=== PATIENT | female | born 1985 | race Caucasian/White ===

== ENCOUNTER → 2017-10-31 17:03 | Outpatient (CLI) | payer OTHER, SELFPAY ==
[2017-11-15 10:56] LABS: HPV APTIMA, High Risk Negative (Negative)
== END ==
PROVIDERS: Visit Provider Nurse Practitioner Women's Health
DX: Z12.4 Encounter for screening for malignant neoplasm of cervix (principal)
CPT/HCPCS: 88175; G0145

== ENCOUNTER → 2018-03-15 18:22 | Outpatient (CLI) | payer OTHER, SELFPAY ==
[2018-03-15 21:46] LABS: Chlamydia Trachomatis by PCR Negative (Negative); Neisserai gonorrhoeae by PCR Negative (Negative); Probe Check PASS; Sample Adequacy Control PASS; Specimen Processing Control PASS
== END ==
PROVIDERS: Family Provider Family Medicine; PCP Family Medicine; Referring Provider Obstetrics & Gynecology; Visit Provider Obstetrics & Gynecology
DX: Z34.90 Encounter for supervision of normal pregnancy, unspecified, unspecified trimester (principal)
CPT/HCPCS: 36415; 82950; 85025; 86592; 86703; 86762; 86850; 86900; 87077; 87086; 87088; 87186; 87340; 87491; 87591

== ENCOUNTER → 2018-04-12 11:42 | Outpatient (CLI) | payer OTHER, SELFPAY ==
[2018-03-15 17:34] LABS: Absolute Lymphocyte Count 1.92 X10^3/ul (0.83-4.51); Absolute Neutrophil Count 4.4 X10^3/uL (2.0-7.7); Basophil# 0.03 X10^3/uL; Basophil% 0.4 % (0-1); Eosinophils% 2.9 % (0-5); Hematocrit 32.7 % (37-47); Hemoglobin 10.3 g/dl (12.0-15.0); Lymphocyte # 1.92 X10^3/ul (4.0); Lymphocyte % 27.4 % (19-41); Mean Corp Hgb Conc 31.5 g/gl (32-36); Mean Corpuscular Hgb 23.7 pg (27.0-32.0); Mean Corpuscular Volume 75.3 fL (81-99); Mean Platelet Vol. 9.9 fl (6.2-12.0); Monocyte# 0.46 X10^3/uL; Monocyte% 6.6 % (0-10); Neutrophil # 4.38 X10^3/uL (2.7-7.7); Neutrophil % 62.6 % (47-70); Platelet Count 326 K/mm3 (150-450); RBC Distribution Width CV 14.4 % (11.6-14.6); RBC Distribution Width SD 40.5 fl (35.1-43.9); Red Blood Count 4.34 M/mm3 (4.2-5.4)
[2018-03-15 17:38] LABS: POSITIVE COUNT NO; POSITIVE DIFFERENTIAL NO; POSITIVE MORPHOLOGY NO
[2018-03-15 17:46] LABS: Glucose Challenge Gest 1H 50g 76 mg/dL (70-140)
[2018-03-15 18:47] LABS: HIV - WCH Non-Reactive (Nonreactive); Rubella IgG 208.6 IU/mL
[2018-03-21 10:29] LABS: HEPATITIS B SURFACE AG Negative (Negative)
[2018-03-22 05:26] LABS: Rapid Plasmin Reagin (RPR) NONREACTIVE (NONREACTIVE)
== END ==
PROVIDERS: Family Provider Family Medicine; PCP Family Medicine; Referring Provider Obstetrics & Gynecology; Visit Provider Obstetrics & Gynecology
DX: Z34.90 Encounter for supervision of normal pregnancy, unspecified, unspecified trimester (principal)
CPT/HCPCS: 36415; 82950; 85025; 86592; 86703; 86762; 86850; 86900; 87340

== ENCOUNTER → 2018-05-10 09:47 | Outpatient (CLI) | payer OTHER, SELFPAY ==
[2018-05-10 09:05] VITALS: BMI 33.0
== END ==
PROVIDERS: Family Provider Family Medicine; PCP Family Medicine; Referring Provider Obstetrics & Gynecology; Visit Provider Obstetrics & Gynecology
DX: Z36.9 Encounter for antenatal screening, unspecified (principal); Z82.49 Family history of ischemic heart disease and other diseases of the circulatory system
CPT/HCPCS: 36415; 81241

== ENCOUNTER → 2018-08-02 09:37 | Outpatient (CLI) | payer OTHER, SELFPAY ==
[2018-08-02 09:23] VITALS: BMI 33.0
[2018-08-02 10:36] LABS: Absolute Lymphocyte Count 1.59 X10^3/ul (0.83-4.51); Basophil# 0.01 X10^3/uL; Basophil% 0.1 % (0-1); Eosinophil# 0.15 X10^3/uL; Eosinophils% 2.1 % (0-5); Hematocrit 33.9 % (37-47); Hemoglobin 11.1 g/dl (12.0-15.0); Lymphocyte # 1.59 X10^3/ul (4.0); Mean Corp Hgb Conc 32.7 g/gl (32-36); Mean Corpuscular Hgb 27.8 pg (27.0-32.0); Mean Corpuscular Volume 84.8 fL (81-99); Monocyte% 6.9 % (0-10); Neutrophil # 4.95 X10^3/uL (2.7-7.7); Neutrophil % 68.5 % (47-70); Platelet Count 260 K/mm3 (150-450); RBC Distribution Width CV 14.8 % (11.6-14.6); RBC Distribution Width SD 44.7 fl (35.1-43.9); White Blood Count 7.2 K/mm3 (4.4-11.0)
[2018-08-02 10:38] LABS: POSITIVE COUNT NO; POSITIVE DIFFERENTIAL NO; POSITIVE MORPHOLOGY NO
[2018-08-02 11:00] LABS: Glucose Challenge Gest 1H 50g 73 mg/dL (70-140)
== END ==
PROVIDERS: Family Provider Family Medicine; PCP Family Medicine; Referring Provider Obstetrics & Gynecology; Visit Provider Obstetrics & Gynecology
DX: Z34.00 Encounter for supervision of normal first pregnancy, unspecified trimester (principal)
CPT/HCPCS: 36415; 82950; 85025; 86850; 86900

== ENCOUNTER → 2018-10-11 07:54 | Outpatient (CLI) | payer OTHER, SELFPAY ==
[2018-10-07 09:28] VITALS: BMI 37.8
--- NOTE | 2018-10-11 07:56 | US_ITS ---
STUDY: SECOND AND THIRD TRIMESTER OBSTETRICAL ULTRASOUND - LIMITED REASON FOR EXAM: Female, 33 years old. growth assessment. LMP: 01/15/2018. GA (LMP) 38 week 3 day, with JV of 10/22/2018. PRIOR ULTRASOUND: None. TECHNIQUE: Transabdominal ultrasound evaluation was performed. FINDINGS: Single live intrauterine gestation, cephalic presentation, cardiac rate 144 bpm. Amniotic fluid index 10.9 cm, maximum vertical pocket 3.2 cm. Placenta grade 2, posterior fundal, not low-lying. Cervical length 3.2 cm, closed. The maternal adnexa are visualized with no acute process. BIOMETRY: Measurement in a centimeter. BPD: 9.49: 38 weeks, 5 days HC: 34.8 to: 40 weeks, 3 days AC: 35.26: 39 weeks, 2 days FL: 7.48: 38 weeks, 2 days Cephalic index 83%. Femur length/abdominal circumference 21%. Femur length/biparietal diameter 79%. Head circumference/abdominal circumference 0.99. age by current US: 39 weeks, 2 days. JV by current US: 10/16/2018. Estimated weight: 3673 grams, +/- 536 grams, 80 percentile. Limited anatomic images were obtained for assessment of dates, viability and positioning only. In the limited survey no gross anatomic abnormality was observed. US/OB Limited With Biometrics IMPRESSION: Single live intrauterine gestation. No acute or maternal abnormality is evident. Measurements are concordant with expected dates within 6 days. Biometrics as noted above. Electronically Signed: John Ashford MD at 17:37 EDT Tel , Service support ,
== END ==
PROVIDERS: Family Provider Family Medicine; PCP Family Medicine; Referring Provider Obstetrics & Gynecology; Visit Provider Obstetrics & Gynecology
DX: O26.849 Uterine size-date discrepancy, unspecified trimester (principal)
CPT/HCPCS: 76816

== ENCOUNTER 2018-10-22 09:57 | Inpatient (IN) | payer OTHER, SELFPAY ==
[2018-08-30 09:08] VITALS: BMI 33.0
[2018-10-22 09:15] VITALS: BMI 37.8
[2018-10-22 10:10] VITALS: BMI 38.2
[2018-10-22] MEDS: 0.9% Normal Saline 100 ML IV.SOLN. INTRA-UTER (13:43)
[2018-10-22] MEDS: Lactated Ringers 1,000 ML 50 ML IV ×2 (13:53→19:45)
[2018-10-22 14:01] LABS: Absolute Lymphocyte Count 1.37 X10^3/ul (0.83-4.51); Absolute Neutrophil Count 5.2 X10^3/uL (2.0-7.7); Basophil# 0.01 X10^3/uL; Basophil% 0.1 % (0-1); Eosinophil# 0.09 X10^3/uL; Eosinophils% 1.3 % (0-5); Hematocrit 33.7 % (37-47); Lymphocyte # 1.37 X10^3/ul (4.0); Lymphocyte % 19.7 % (19-41); Mean Corp Hgb Conc 32.6 g/gl (32-36); Mean Corpuscular Hgb 25.9 pg (27.0-32.0); Mean Corpuscular Volume 79.3 fL (81-99); Mean Platelet Vol. 11.4 fl (6.2-12.0); Monocyte# 0.27 X10^3/uL; Monocyte% 3.9 % (0-10); Neutrophil # 5.21 X10^3/uL (2.7-7.7); Neutrophil % 74.9 % (47-70); POSITIVE COUNT NO; POSITIVE DIFFERENTIAL NO; POSITIVE MORPHOLOGY NO; Platelet Count 220 K/mm3 (150-450); RBC Distribution Width SD 42.3 fl (35.1-43.9); Red Blood Count 4.25 M/mm3 (4.2-5.4)
[2018-10-22] MEDS: Oxytocin 30 units/NS 500 ml 30 UNITS/500 ML IV.SOLN IV (15:56)
[2018-10-22] MEDS: fentaNYL-bupivacaine (epidural) 100 ML BAG EPIDURAL (20:10)
[2018-10-23] MEDS: Lactated Ringers 1,000 ML 50 ML IV (00:32)
[2018-10-23] MEDS: fentaNYL-bupivacaine (epidural) 100 ML BAG EPIDURAL (00:32)
[2018-10-23] MEDS: Amnioinfusion- 0.9% NS 1,000 ML IV.SOLN. 500 ML INTRA-UTER (00:37)
--- NOTE | 2018-10-23 03:44 | PCM.HP.OB ---
- Problem List (1) Oligohydramnios in third trimester Status: Acute (2) Contraception management Status: Acute Qualifiers: Comment: Jorge PP-no prior auth needed as of 08/19/18 (3) GBS (group B streptococcus) UTI complicating Status: Acute Qualifiers: Comment: macrobid, plan pcn at delivery (4) Rh negative state in antepartum period Status: Acute Comment: Rhogam given 28 weeks and prn. (5) Family history of blood clots Status: Acute Comment: ordered thrombophilia panel- factor V testing negative (6) Status: Acute Qualifiers: Comment: NIPT low risk. AFP negative. carrier screening declined. Anatomy US normal (7) Supervision of normal first Status: Acute Qualifiers: Comment: PRR JV 10/22/18 boy Jaiden History Date of Admission: 10/23/18 Final JV: 10/22/18 Gestational age: 40 weeks History of this : This is a 33 year-old, G 1P0 at 40 weeks gestational age presents for induction of labor secondary to oligohydramnios. Patient had a routine visit today in the office and was noted to have decreased fundal height. ARSALAN was checked and was only 3.7. Medical History: Medical History (Last Reviewed 10/22/18 @ 09:15 by Delma Ramon) Seasonal allergies J30.2 Surgical History: Surgical History (Last Reviewed 10/22/18 @ 09:15 by Delma Ramon) Hx of ALINA Z98.890 Allergies No Known Allergies Allergy (Verified 10/22/18 09:15) Home Medications: Home Medications vitamin#30 30 mg iron-10 mg iron-folic acid 1 mg-omg3 capsule cap PO cap 03/15/18 Ferrous Sulfate [Slow Fe] 142 mg PO DAILY 10/22/18 Smoking Status: Former smoker Alcohol: None Number of Fetus(es): 1 Heart Tracinsmoderate variability reactive no decelerations category I tracing [place]: irregular History Past Pregnancies: Past Pregnancies Delivery Date Name GA/Weeks Outcome Route Weight Gender Labor Length Anesthesia Delivery Location Provider FOB Labs: Mom's Labs & Results 10/22/18 10/22/18 13:40 13:40 WBC 7.0 RBC 4.25 Hgb 11.0 L Hct 33.7 L MCV 79.3 L MCH 25.9 L MCHC 32.6 RDW 15.0 H RDW Differential 42.3 Plt Count 220 MPV 11.4 Immature Gran % (Auto) 0.100 Neut % (Auto) 74.9 H Lymph % (Auto) 19.7 [place] % (Auto) 3.9 Eos % (Auto) 1.3 Baso % (Auto) 0.1 Absolute Neuts (auto) 5.2 Absolute Lymphs (auto) 1.37 Total Counted Not Reportable Blood Type O NEGATIVE Antibody Screen NEGATIVE Course Did the patient receive Yes care? Labs Blood Type: O RH: NEGATIVE RPR/VDRL/Syphilis Nonreactive Rubella status Immune HbSAg Negative Date Done: 03/15/18 Chlamydia Negative Gonorrhea Negative HIV/AIDS Non-Reactive Group B Strep: Positive Current Obstetrical History Gestational Diabetes No Incompetent Cervix No Infertility No IUGR No Macrosomia No Hypertension/Pre-eclampsia No Placenta Previa/Abruption No PTL/PROM No Uterine anomaly No Oligohydramnios Yes Polyhydramnios No Multiple gestation No Past Medical History Asthma No Diabetes No Hypertension No Heart disease No Mitral valve prolapse No Neurologic/Seizure disorder/ No Migraines Kidney disease No Liver disease No Varicosities No Clotting disorders/Hx of DVT No Thyroid Dysfunction No Other medical diseases No Psychiatric disorders No Major trauma No Abnormal PAP smear No Sleep apnea No Mammogram in the last 2 years No Social History Marital Status: Alleged father Jaiden Krueger Hx Smoking Yes Smoking Status Former smoker Expected Delivery Method: Spontaneous Vaginal Review of Systems Constitutional: Denies: Fever, Malaise Eyes: Denies: Blurred vision, Vision Change HEENT: Denies: Head Aches, Visual Changes Cardiovascular: Denies: Chest Pain, Palpitations Respiratory: Denies: Cough, Shortness of Breath, Wheezing Gastrointestinal: Denies: Abdominal Pain, Diarrhea, Nausea, Vomiting Genitourinary: Denies: Dysuria, Hematuria Musculoskeletal: Denies: Joint Pain, Muscle pain Skin: Denies: Lesions, Rash Neurological: Denies: Blurred vision, Focal weakness, Headaches Psychiatric: Denies: Anxiety, Depression Endocrine: Denies: Heat/ Cold Intolerance Hematologic/ Lymphatic: Denies: Easy Bruising, Easy Bleeding Physical Exam General: Alert, Cooperative, No apparent distress HEENT: Atraumatic, Normocephalic. Negative for: Thyromegaly, Lymphadenopathy Cardiovascular: Regular rate Lungs: Normal air movement Abdomen: Soft, Non Tender, Gravid Neurological: Deep Tendon Reflexes 2+/4 and Symmetrical, Neuro grossly intact. Negative for: Clonus [employer] PLAYER: Normal external genitalia. Negative for: Vulvar lesions Estimated gestational size: Appropriate for gestational size Presentation: Cephalic Cervix Dilation (cm): 2 Station: -3 Effacement (%): 60 Assessment/Plan All Active Problems (Last Reviewed 10/22/18 @ 09:15 by Delma Ramon) Oligohydramnios in third trimester (Acute) Contraception management (Acute) GBS (group B streptococcus) UTI complicating (Acute) Rh negative state in antepartum period (Acute) Family history of blood clots (Acute) (Acute) Supervision of normal first (Acute) Low lying placenta nos or without hemorrhage, second trimester (Resolved) This is a 33 year-old, G1, P0, at 40 weeks gestational age presents for induction of labor secondary to oligohydramnios Patient presents IOL, plan management for , pitocin/AROM after Thornton bulb. Pain management: Plans epidural. GBS positive plan penicillin. Management of any complications: Oligohydramnios I have reviewed the [facility] and made any clinically relevant updates.
--- NOTE | 2018-10-23 03:52 | PCM.OPRPT ---
Problem List (1) Oligohydramnios in third trimester Status: Acute (2) Contraception management Status: Acute Qualifiers: Comment: Jorge PP-no prior auth needed as of 08/19/18 (3) GBS (group B streptococcus) UTI complicating Status: Acute Qualifiers: Comment: macrobid, plan pcn at delivery (4) Rh negative state in antepartum period Status: Acute Comment: Rhogam given 28 weeks and prn. (5) Family history of blood clots Status: Acute Comment: ordered thrombophilia panel- factor V testing negative (6) Status: Acute Qualifiers: Comment: NIPT low risk. AFP negative. carrier screening declined. Anatomy US normal (7) Supervision of normal first Status: Acute Qualifiers: Comment: PRR JV 10/22/18 boy Jaiden Vaginal Delivery Maternal Presentation: Medically Indicated Induction iol oligo 40 weeks Method of Induction: Pitocin, Thornton Bulb Amniotic Membrane Rupture Type: Spontaneous Amniotic Fluid Description: Clear Final JV: 10/22/18 Gestational age: 40 Weeks and 2 Days Date of Procedure: 10/23/18 Pre-Operative Diagnosis: iol oligo Post-Operative Diagnosis: same Surgery/ Procedure Performed: Spontaneous Vaginal Delivery Type of Anesthesia: Epidural Description of Procedure: Patient began pushing and delivered the head in the suzanne presentation. The head was delivered atraumatically . The anterior and posterior shoulders delivered without complication followed by the rest of the infant and the infant was placed on the maternal abdomen. Delayed cord clamping was employed for approximately 60 seconds. Cord was clamped and cut and gentle traction was applied to the cord and the placenta delivered spontaneously immediately following it was noted to be intact with three-vessel cord. The perineum and vagina were inspected and noted to have a small second-degree perineal laceration that was repaired in the usual fashion. Patient had a right periclitoral cyst that opened up and drained. EBL was 400. Patient and infant tolerated delivery well. Presentation: SUZANNE Placental Delivery Description: Spontaneous Placenta Disposition: [facility] Cord Vessel Description: 3 Vessels Cord Entanglement: None Estimated Blood Loss: 400 A gender: Male Episiotomy Description: None Laceration: Perineal Extension/lac, 2nd degree Medications given after delivery: IV Pitocin Complications: None
[2018-10-23] MEDS: Oxytocin 30 units/NS 500 ml 30 UNITS/500 ML IV.SOLN 334 UNITS IV (05:15)
[2018-10-23] MEDS: Oxytocin 30 units/NS 500 ml 30 UNITS/500 ML IV.SOLN 167 UNITS IV (05:45)
[2018-10-23] MEDS: Naproxen 250 MG Tablet 500 MG PO ×2 (08:28→18:50)
[2018-10-23 12:00] VITALS: BP 113/79; PULSE 100; RESP 14; TEMP 36.4
[2018-10-23 16:00] VITALS: BP 120/82; PULSE 88; RESP 16; TEMP 36.3
[2018-10-23 20:52] VITALS: BP 121/80; PULSE 75; RESP 16; TEMP 36.9
[2018-10-23] MEDS: Senna/Docusate Sodium 1 Tablet PO (20:59)
[2018-10-24 00:34] VITALS: BP 124/80; PULSE 86; RESP 16; TEMP 36.9
[2018-10-24] MEDS: Acetaminophen 500 MG Tablet 1000 MG PO (00:40)
[2018-10-24 05:00] VITALS: BP 116/80; PULSE 76; RESP 16; TEMP 36.3
--- NOTE | 2018-10-24 07:36 | PCM.PN.OB ---
Patient Problems: Active and Suspected Problems (Last Reviewed 10/22/18 @ 09:15 by Delma Ramon) Oligohydramnios in third trimester (Acute) Subjective: doing well no complaints pain controlled no CP SOB N V ambulating well tolerating po lochia moderate, going well - Physical Exam General: Alert, Oriented x3 Abdomen: Non Tender, - - FF below U Vital Signs Temp Pulse Resp BP 97.4 F L 76 16 116/80 10/24/18 05:00 10/24/18 05:00 10/24/18 05:00 10/24/18 05:00 Oxygen Delivery Method Room Air Weight: 252 lb Body Mass Index (BMI) 38.2 Intake and Output for Last 24 Hours 10/22/18 10/23/18 10/24/18 23:59 23:59 23:59 Intake Total 5411 / 5411 Output Total 3575 / 3575 Balance 1836 / 1836 Medical Necessity - Tobacco Use Smoking Status: Former smoker Assessment/Plan All Active Problems (Last Reviewed 10/22/18 @ 09:15 by Delma Ramon) Oligohydramnios in third trimester (Acute) Contraception management (Acute) GBS (group B streptococcus) UTI complicating (Acute) Rh negative state in antepartum period (Acute) Family history of blood clots (Acute) (Acute) Supervision of normal first (Acute) Low lying placenta nos or without hemorrhage, second trimester (Resolved) s/p PPD # 1 1. routine post delivery care 2. breast feeding- support given 3. rh negative-rhogam 4. rubella immune 5. Home today
--- NOTE | 2018-10-24 07:38 | DCINST_ITS ---
Additional Instructions: If you experience any of the following, contact your healthcare provider. * Bleeding that soaks a pad every hour for 2 hours * Fever 100.4 or higher * Unrelieved incision or abdominal pain * Swelling, redness, discharge or bleeding from your incision or episiotomy site * Your incision begins to separate * Problems urinating (including inability to urinate or burning while urinating). * Visual changes * Severe headache * Flu-like symptoms * Pain or redness in one of both of your breasts * Pain, warmth, tenderness or swelling in your legs, especially the calf area * Frequent nausea and vomiting * Symptoms of depression or anxiety If you experience any of the following, call 911 or go to the nearest Emergency Room. * Chest pain * Problems breathing * Seizure activity * Partial or complete paralysis of a body part, slurred speech, weakness or drooping of the face, or a sudden inability to walk or hold your balance Allergies/Adverse Reactions: Allergies No Known Allergies Allergy (Verified 10/22/18 09:15) Medications to take at Discharge vitamin#30 30 mg iron-10 mg iron-folic acid 1 mg-omg3 capsule cap PO cap 03/15/18 Ferrous Sulfate [Slow Fe] 142 mg PO DAILY 10/22/18 Primary Care Physician: Julio Ro MD [Primary Care Provider] - Test Results: Test results from this visit will be discussed in further detail at your follow- up appointment, if applicable.
--- NOTE | 2018-10-24 07:38 | PCM.DCVAG ---
Additional Instructions: If you experience any of the following, contact your healthcare provider. Bleeding that soaks a pad every hour for 2 hours Fever 100.4 or higher Unrelieved incision or abdominal pain Swelling, redness, discharge or bleeding from your incision or episiotomy site Your incision begins to separate Problems urinating (including inability to urinate or burning while urinating). Visual changes Severe headache Flu-like symptoms Pain or redness in one of both of your breasts Pain, warmth, tenderness or swelling in your legs, especially the calf area Frequent nausea and vomiting Symptoms of depression or anxiety If you experience any of the following, call 911 or go to the nearest Emergency Room. Chest pain Problems breathing Seizure activity Partial or complete paralysis of a body part, slurred speech, weakness or drooping of the face, or a sudden inability to walk or hold your balance Allergies/Adverse Reactions: Allergies No Known Allergies Allergy (Verified 10/22/18 09:15) Medications to take at Discharge vitamin#30 30 mg iron-10 mg iron-folic acid 1 mg-omg3 capsule cap PO cap 03/15/18 Ferrous Sulfate [Slow Fe] 142 mg PO DAILY 10/22/18 Primary Care Physician: Julio Ro MD [Primary Care Provider] - Test Results: Test results from this visit will be discussed in further detail at your follow-up appointment, if applicable.
[2018-10-24] MEDS: Naproxen 250 MG Tablet 500 MG PO (07:51)
[2018-10-24] MEDS: Senna/Docusate Sodium 1 Tablet PO (07:56)
[2018-10-24 08:00] VITALS: BP 136/77; PULSE 96; RESP 16; TEMP 36.2
[2018-10-24 12:30] VITALS: BP 136/76; PULSE 104; RESP 18; TEMP 36.5
== END 2018-10-24 13:10 | disposition home or self-care (01) | DRG 768 ==
PROVIDERS: Admitting Provider Obstetrics & Gynecology; Family Provider Family Medicine; PCP Family Medicine; Referring Provider Obstetrics & Gynecology; Visit Provider Obstetrics & Gynecology
DX: O41.03X0 Oligohydramnios, third trimester, not applicable or unspecified (principal); Z37.0 Single live birth; O48.0 Post-term pregnancy; Z3A.40 40 weeks gestation of pregnancy; O70.1 Second degree perineal laceration during delivery; O99.824 Streptococcus B carrier state complicating childbirth; O99.214 Obesity complicating childbirth; E66.01 Morbid (severe) obesity due to excess calories; Z87.891 Personal history of nicotine dependence; N90.7 Vulvar cyst; O75.89 Other specified complications of labor and delivery
CPT/HCPCS: 59025; 59050; 85025; 86850; 86900; 99218; J7030; J7120; G0378

== ENCOUNTER → 2018-12-13 | Outpatient (CLI) | payer OTHER, SELFPAY ==
[2018-12-13 10:26] VITALS: BMI 35.2
== END | disposition home or self-care (01) ==
LOC: LABSPEC 16:28
PROVIDERS: Family Provider Family Medicine; PCP Family Medicine; Referring Provider Obstetrics & Gynecology; Visit Provider Obstetrics & Gynecology
DX: N89.8 Other specified noninflammatory disorders of vagina (principal)
CPT/HCPCS: 87070; 87077; 87205

== ENCOUNTER → 2019-10-20 17:51 | Outpatient (CLI) | payer OTHER, SELFPAY ==
[2019-10-20 11:15] VITALS: BMI 36.1
[2019-10-20 18:50] LABS: Amphetamine Urine VISTA NEGATIVE (<1000 ng/mL); Barbiturate Urine VISTA NEGATIVE (< 200 ng/mL); Benzodiazepine Urine VISTA NEGATIVE (< 200 ng/mL); Cocaine Urine VISTA NEGATIVE (< 300 ng/mL); Ecstacy Urine VISTA NEGATIVE (< 500 ng/mL); Methadone Urine VISTA NEGATIVE (< 300 ng/mL); PCP Urine VISTA NEGATIVE (< 25 ng/mL); THC Urine VISTA NEGATIVE (< 50 ng/mL); Vista UDS pH Range 5
[2019-10-20 20:15] LABS: Chlamydia Trachomatis by PCR Negative (Negative); Neisserai gonorrhoeae by PCR Negative (Negative); Probe Check PASS; Sample Adequacy Control PASS; Specimen Processing Control PASS
== END ==
PROVIDERS: PCP Family Medicine; Visit Provider Obstetrics & Gynecology
DX: O09.529 Supervision of elderly multigravida, unspecified trimester (principal); O99.210 Obesity complicating pregnancy, unspecified trimester; O09.899 Supervision of other high risk pregnancies, unspecified trimester; Z67.91 Unspecified blood type, Rh negative; Z3A.00 Weeks of gestation of pregnancy not specified
CPT/HCPCS: 80307; 87086; 87491; 87591

== ENCOUNTER → 2019-10-31 14:48 | Outpatient (CLI) | payer OTHER, SELFPAY ==
[2019-10-31 13:51] VITALS: BMI 35.2
[2019-10-31 16:01] LABS: NATERA MAILED SPECIMEN
[2019-10-31 16:14] LABS: Absolute Lymphocyte Count 1.56 X10^3/uL (0.83-4.51); Absolute Neutrophil Count 6.8 X10^3/uL (2.0-7.7); Basophil# 0.02 X10^3/uL; Basophil% 0.2 % (0-1); Eosinophil# 0.18 X10^3/uL; Hematocrit 34.6 % (37-47); Hemoglobin 11.1 g/dL (12.0-15.0); Lymphocyte # 1.56 X10^3/ul (4.0); Lymphocyte % 17.1 % (19-41); Mean Corp Hgb Conc 32.1 g/dL (32-36); Mean Corpuscular Hgb 24.3 pg (27.0-32.0); Mean Corpuscular Volume 75.9 fL (81-99); Mean Platelet Vol. 10.4 fl (6.2-12.0); Monocyte% 5.5 % (0-10); NRBC Flagged by Analyzer 0 % (0-5); Neutrophil # 6.82 X10^3/uL (2.7-7.7); Neutrophil % 74.9 % (47-70); Platelet Count 319 K/mm3 (150-450); RBC Distribution Width CV 16.2 % (11.6-14.6); RBC Distribution Width SD 44.4 fl (35.1-43.9); Red Blood Count 4.56 M/mm3 (4.2-5.4); White Blood Count 9.1 K/mm3 (4.4-11.0)
[2019-10-31 16:53] LABS: Glucose Challenge Gest 1H 50g 90 mg/dL (70-140)
[2019-10-31 18:26] LABS: HIV - WCH Non-Reactive (Nonreactive); Hepatitis B Surface Antigen Non-Reactive (Nonreactive); Hepatitis C Antibody Non-Reactive (Nonreactive); Rubella IgG 161.9 IU/mL
[2019-11-06 00:55] LABS: Rapid Plasmin Reagin (RPR) NONREACTIVE (NONREACTIVE)
== END ==
PROVIDERS: PCP Family Medicine; Referring Provider Obstetrics & Gynecology; Visit Provider Obstetrics & Gynecology
DX: O09.529 Supervision of elderly multigravida, unspecified trimester (principal); O99.210 Obesity complicating pregnancy, unspecified trimester; O09.899 Supervision of other high risk pregnancies, unspecified trimester; Z67.91 Unspecified blood type, Rh negative; Z3A.00 Weeks of gestation of pregnancy not specified
CPT/HCPCS: 36415; 82950; 85025; 86592; 86703; 86762; 86803; 86850; 86900; 86901; 87340

== ENCOUNTER → 2019-12-26 10:50 | Outpatient (CLI) | payer OTHER, SELFPAY ==
[2019-12-26 10:29] VITALS: BMI 35.2
== END ==
PROVIDERS: PCP Family Medicine; Referring Provider Obstetrics & Gynecology; Visit Provider Obstetrics & Gynecology
DX: Z36.9 Encounter for antenatal screening, unspecified (principal)
CPT/HCPCS: 36415

== ENCOUNTER → 2020-02-20 16:37 | Outpatient (CLI) | payer OTHER, SELFPAY ==
[2020-02-20 10:03] VITALS: BMI 35.2
== END ==
PROVIDERS: PCP Family Medicine; Referring Provider Obstetrics & Gynecology; Visit Provider Obstetrics & Gynecology
DX: N89.8 Other specified noninflammatory disorders of vagina (principal)
CPT/HCPCS: 87070; 87205

== ENCOUNTER → 2020-03-08 10:05 | Outpatient (CLI) | payer OTHER, SELFPAY ==
[2020-03-02 11:37] VITALS: BMI 35.2
[2020-03-08 10:33] LABS: Absolute Lymphocyte Count 1.45 X10^3/uL (0.83-4.51); Absolute Neutrophil Count 5.5 X10^3/uL (2.0-7.7); Basophil# 0.03 X10^3/uL; Basophil% 0.4 % (0-1); Eosinophils% 1.4 % (0-5); Hematocrit 33.8 % (37-47); Hemoglobin 10.5 g/dL (12.0-15.0); Lymphocyte # 1.45 X10^3/ul (4.0); Lymphocyte % 19.6 % (19-41); Mean Corp Hgb Conc 31.1 g/dL (32-36); Mean Corpuscular Hgb 24.5 pg (27.0-32.0); Mean Corpuscular Volume 78.8 fL (81-99); Mean Platelet Vol. 10.2 fl (6.2-12.0); Monocyte# 0.28 X10^3/uL; Monocyte% 3.8 % (0-10); NRBC Flagged by Analyzer 0 % (0-5); Neutrophil # 5.51 X10^3/uL (2.7-7.7); Neutrophil % 74.4 % (47-70); Platelet Count 338 K/mm3 (150-450); RBC Distribution Width CV 16.2 % (11.6-14.6); RBC Distribution Width SD 45.8 fl (35.1-43.9); Red Blood Count 4.29 M/mm3 (4.2-5.4); White Blood Count 7.4 K/mm3 (4.4-11.0)
[2020-03-08 10:43] LABS: Glucose Challenge Gest 1H 50g 124 mg/dL (70-140)
== END ==
PROVIDERS: PCP Family Medicine; Referring Provider Obstetrics & Gynecology; Visit Provider Obstetrics & Gynecology
DX: O09.529 Supervision of elderly multigravida, unspecified trimester (principal); O26.899 Other specified pregnancy related conditions, unspecified trimester; Z67.91 Unspecified blood type, Rh negative; Z13.1 Encounter for screening for diabetes mellitus; Z3A.00 Weeks of gestation of pregnancy not specified
CPT/HCPCS: 36415; 82950; 85025; 86850; 86900; 86901

== ENCOUNTER → 2020-04-28 10:21 | Outpatient (CLI) | payer OTHER, SELFPAY ==
[2020-04-16 10:04] VITALS: BMI 38.2
[2020-04-28 10:00] VITALS: BMI 38.2
[2020-04-28 10:38] LABS: Absolute Lymphocyte Count 1.65 X10^3/uL (0.83-4.51); Absolute Neutrophil Count 4.7 X10^3/uL (2.0-7.7); Basophil# 0.03 X10^3/uL; Basophil% 0.4 % (0-1); Eosinophil# 0.09 X10^3/uL; Eosinophils% 1.3 % (0-5); Hematocrit 31.5 % (37-47); Hemoglobin 10.1 g/dL (12.0-15.0); Lymphocyte # 1.65 X10^3/ul (4.0); Lymphocyte % 24.2 % (19-41); Mean Corp Hgb Conc 32.1 g/dL (32-36); Mean Corpuscular Volume 74.8 fL (81-99); Mean Platelet Vol. 10.6 fl (6.2-12.0); Monocyte# 0.35 X10^3/uL; Monocyte% 5.1 % (0-10); NRBC Flagged by Analyzer 0 % (0-5); Neutrophil # 4.67 X10^3/uL (2.7-7.7); Neutrophil % 68.7 % (47-70); Platelet Count 293 K/mm3 (150-450); RBC Distribution Width CV 15.3 % (11.6-14.6); RBC Distribution Width SD 41.2 fl (35.1-43.9); Red Blood Count 4.21 M/mm3 (4.2-5.4); White Blood Count 6.8 K/mm3 (4.4-11.0)
[2020-04-28 10:51] LABS: ALB/GLOB Ratio 0.6 RATIO (0.9-2.4); AST(SGOT) 9 U/L (15-37); Alanine Aminotransfer ALT/SGPT 15 U/L (13-56); Albumin, Serum 2.7 g/dL (3.2-5.0); Alkaline Phosphatase 170 U/L (45-117); Anion Gap 6 (5-15); BUN 5 mg/dL (7-18); Calcium,Total 8.8 mg/dL (8.5-10.1); Chloride 107 mmol/L (98-107); Creatinine, Serum 0.55 mg/dL (0.55-1.02); EST Glomerular Filtration Rate 132 mL/min (>60); Est Glom Filt Rate - Afr Amer 160 mL/min (>60); Globulin 4.3 g/dL (2.2-4.2); Glucose 85 mg/dL (74-106); Potassium 3.8 mmol/L (3.5-5.1); Sodium Level 137 mmol/L (136-145)
[2020-04-28 10:52] LABS: Protein, Urine (Random) < 6.0 mg/dL (<11.9)
--- NOTE | 2020-04-28 12:26 | US_ITS ---
EXAM DESCRIPTION: ultrasound CLINICAL HISTORY: 34 years, GROWTH, Obstetrical screening. The gestation age based upon the LMP is 36 weeks, 0 days for an estimated due date of 05/26/2020. The gestational age based upon today''s ultrasound measurements is 37 weeks, 2 days for an estimated due date of 05/17/2020. TECHNIQUE: High-resolution transabdominal real-time sonography of the pelvis was performed. anatomy was assessed. COMPARISON: There is no previous study for comparison at [facility]. FINDINGS: There is a gravid uterus with a single intrauterine gestation in the variable presentation. The cervical length is 6.0 cm. The cervical os is closed The placenta is anterior in location with a Grade 1 echotexture. The cord inserts in the umbilicus and there is no evidence of placenta previa. Amniotic fluid index is 9.13 cm. The MVP is 4.6 cm. motion and heart activity are demonstrated throughout the examination. Measured heart rate is 155 beats per minute. The anatomy was grossly visualized showing a normal-appearing head. BPD: 9.4 cm corresponding to a 3.8 week 2 day gestation. HC: 33.9 cm corresponding to a 39 week 0 day gestation. AC: [32.9 cm corresponding to a 36 week 5 day gestation. FL: 6.9 cm corresponding to a 35 week 6 day gestation. FL/AC: 20.6 % (20-24 % is normal range.) HC/AC: 1.03 Estimated weight: 3094 grams, +/- 458 grams. This weight places the gestation at approximately the 75th percentile when compared to the last menstrual period history. US/OB Limited With Biometrics IMPRESSION: Single, viable intrauterine gestation in the variable presentation at approximately 37 weeks 2 days based upon today''s ultrasound measurements Electronically Signed: Chava Jc, at 12:07 EST Tel , Service support ,
== END ==
PROVIDERS: Referring Provider Obstetrics & Gynecology; Visit Provider Obstetrics & Gynecology
DX: O12.10 Gestational proteinuria, unspecified trimester (principal); O99.210 Obesity complicating pregnancy, unspecified trimester; O09.529 Supervision of elderly multigravida, unspecified trimester; O09.299 Supervision of pregnancy with other poor reproductive or obstetric history, unspecified trimester; Z3A.00 Weeks of gestation of pregnancy not specified
CPT/HCPCS: 36415; 76816; 80053; 82570; 84156; 85025; 87077; 87081; 87186

== ENCOUNTER → 2020-05-21 08:36 | Outpatient (CLI) | payer OTHER, SELFPAY ==
[2020-05-14 10:01] VITALS: BMI 38.9
--- NOTE | 2020-05-21 08:39 | US_ITS ---
STUDY: SECOND AND THIRD TRIMESTER OBSTETRICAL ULTRASOUND - LIMITED REASON FOR EXAM: Female, 34 years old ARSALAN ONLY -- AMA LMP: 09/03/2019. PRIOR ULTRASOUND: Comparison is made with prior examination dated 04/28/2020. TECHNIQUE: Transabdominal TECHNICAL QUALITY: Adequate. FINDINGS: There is a single intrauterine fetus. The fetus is in a cephalic presentation. There is demonstrated cardiac activity with a heart rate of 140 bpm. There is a normal amniotic fluid volume. The largest amniotic fluid pocket measures 3.8 cm x 1.6 cm. The amniotic fluid index (ARSALAN) is 11.5 cm. The placenta is anterior in location and is not low lying. There are Grade 2 placental changes. US/OB Limited (No Biometrics) IMPRESSION: Normal amniotic fluid. Electronically Signed: Albert Phan, at 10:56 EST , Service support ,
== END ==
PROVIDERS: PCP Family Medicine; Referring Provider Obstetrics & Gynecology; Visit Provider Obstetrics & Gynecology
DX: O09.529 Supervision of elderly multigravida, unspecified trimester (principal); Z3A.00 Weeks of gestation of pregnancy not specified
CPT/HCPCS: 76815

== ENCOUNTER → 2020-05-21 10:06 | Outpatient (CLI) | payer OTHER, SELFPAY ==
[2020-05-07 10:13] VITALS: BMI 38.6
[2020-05-21 10:01] VITALS: BMI 39.4
== END ==
PROVIDERS: PCP Family Medicine; Referring Provider Obstetrics & Gynecology; Visit Provider Obstetrics & Gynecology
DX: Z11.59 Encounter for screening for other viral diseases (principal)
CPT/HCPCS: 87635; U0003

== ENCOUNTER 2020-05-24 09:15 | Inpatient (IN) | payer OTHER, SELFPAY ==
[2020-05-14 10:01] VITALS: BMI 38.9
[2020-05-21 10:01] VITALS: BMI 39.4
[2020-05-24] VITALS (64 sets, daily range): BP systolic 96–178; BP diastolic 51–93; PULSE 81–127; TEMP 35.9–37.6; O2SAT 97–100; BMI 39.4
[2020-05-24 10:05] LABS: ROM Internal Control Test YES-OK TO RESULT pt. (Internal QC)
[2020-05-24 10:07] LABS: ROM Patient Test POSITIVE (Negative)
[2020-05-24] MEDS: Lactated Ringers 1,000 ML 50 ML IV (10:33)
[2020-05-24 10:49] LABS: Absolute Lymphocyte Count 1.48 X10^3/uL (0.83-4.51); Absolute Neutrophil Count 6.7 X10^3/uL (2.0-7.7); Basophil# 0.03 X10^3/uL; Basophil% 0.3 % (0-1); Eosinophil# 0.12 X10^3/uL; Eosinophils% 1.4 % (0-5); Hematocrit 30.1 % (37-47); Hemoglobin 9.3 g/dL (12.0-15.0); Lymphocyte # 1.48 X10^3/ul (4.0); Lymphocyte % 16.8 % (19-41); Mean Corp Hgb Conc 30.9 g/dL (32-36); Mean Corpuscular Hgb 22.5 pg (27.0-32.0); Mean Corpuscular Volume 72.9 fL (81-99); Mean Platelet Vol. 11.1 fl (6.2-12.0); Monocyte# 0.42 X10^3/uL; Monocyte% 4.8 % (0-10); NRBC Flagged by Analyzer 0 % (0-5); Neutrophil % 76.1 % (47-70); Platelet Count 282 K/mm3 (150-450); RBC Distribution Width CV 16.4 % (11.6-14.6); RBC Distribution Width SD 41.7 fl (35.1-43.9); Red Blood Count 4.13 M/mm3 (4.2-5.4); White Blood Count 8.8 K/mm3 (4.4-11.0)
--- NOTE | 2020-05-24 11:15 | PCM.HPOB.BLA ---
- Problem List (1) SROM (spontaneous rupture of membranes) Status: Acute (2) 35 weeks gestation of Status: Acute Comment: electronic covid test ordered 04/21/2020sc (scheduled for 05/21/2020 at 0940) (3) AMA (advanced maternal age) multigravida 35+ Status: Acute Qualifiers: Comment: PRR JV 05/26/2020 boy PC: Rachel Spouse: Jaiden (4) History of oligohydramnios in prior , currently Status: Acute Comment: nl 36 weeks ultrasound, repeat gustavo 05/21 (5) Lab test negative for COVID-19 virus Status: Acute (6) Obesity affecting Status: Acute Qualifiers: Comment: nl glucola at NOB, encourage healthy weight gain. normal 1 hr GTT (7) Positive GBS test Status: Acute Comment: pcn in labor (8) Status: Acute Qualifiers: Comment: decline carrier screening. genetic low risk. ntd screening AFP neg. Anatomy nl (9) Rh negative state in antepartum period Status: Acute Comment: Rhogam will be given at 28 weeks and prn. History and Physical Date of Admission: 05/24/20 Intake Vital Signs 05/21/20 Height 5 ft 8 in 05/21/20 Weight: 259 lb 8 oz 05/21/20 BMI 39.4 05/21/20 BP 110/84 H Intake Visit Reasons: 39WK OB Greenhouse Manager Required: No Is patient in pain?: No Allergies No Known Allergies Allergy (Verified 05/21/20 10:01) Medications vitamin#30 30 mg iron-10 mg iron-folic acid 1 mg-omg3 capsule cap PO cap 03/15/18 [History Confirmed 05/21/20] Last Menstral Period: 08/08/19 Zika: Zika virus screening: Negative : No PFSH PFSH Medical History Migraine (Acute) Seasonal allergies (Acute) Surgical History Hx of LASIK (Acute) Family History Mother Heart disease Father Bleeding disorder PE Sister Heart disease Hypertension Social History (Updated 05/21/20 @ 10:[address] Lucila Page MD) household members: spouse housing: [facility] number of children: 1 current occupational status: employed current occupation: [employer] pets and animals: Yes history of recent travel: No Smoking Status: Former smoker second hand exposure: No alcohol intake: current alcohol intake frequency: a few times a week substance use type: does not use what type of physical activity do you participate in: walking, yoga frequency: 1-2 times per week seatbelt use: always do you feel safe at home: Yes additional social history: Jaiden- Steele Pregancy History 2 Elective abortions Hx Para 1 Spontaneous abortions Hx # Term Pregnancies Ectopic pregnancies Hx # Pregnancies Multiple births # of living children 1 Past Pregnancies Del. Date Name GA/Weeks Outcome Route Bth Weight Gen Labor Lgth Anesthesia Del Locatn Provider FOB 10/23/18 Rachel 40 live - full term 8.15 Male 18 hours epidural [facility] MARIYA Jaiden Delivery Date: 10/23/18 Oligo Melia Villalobos HPI 39WK OB : Details: SHELLIE CANNON is a 34 year old who presents with SROM clear fluid 39w5d. She is not having regular ctx. OB Visit JV Calculator Estimated Delivery Date Method Current WG Current Estimate 05/26/20 Ultrasound #1 39w 2d Other Estimates 05/14/20 LMP (Certain) 41w 0d Expected Delivery Route/Plan plan IOL 05/25 for AMA Labor Preferences- labor support person: Jaiden pain management options preferred: epidural cut cord/dad catch: yes : yes PP control planned: IUD discussed possible routes of delivery and associated risks: discussed possible delivery modalities and possible indications for each including R/B/A of , VAVD, FAVD, and CS. questions answered. special requests: none Specific Issue/Plans flu vaccine: at work tdap vaccine: 03/08/20 rhogam: 03/08/20 LARC form signed: yes Problem list reviewed and updated with the most current plan of care details and appropriate orders placed. Relevant counseling for the gestational age provided. Continue routine care and follow up unless otherwise noted in visit notes/problem list details Initial Weight: 238 lb Date EGA Weight BP Urine Prot Glucose FHR FuHt Pres Dilation Effaced St Visit Note 10/31/19 10w 2d 240 lb 6 oz (+2 lb 6 oz) 118/74 Negative Negative 160 SM- no vb lof cramping, bloodwork today 11/28/19 14w 2d 235 lb 2 oz (-2 lb 14 oz) 138/80 Negative Negative 150 SM- no vb cramping, fatigue. reviewed genetic screening results 12/26/19 18w 2d 238 lb 2 oz (+2 oz) 104/80 Negative Negative 150 SM- no vb cramping afp today. 01/19/20 21w 5d 243 lb (+5 lb) 124/88 Negative Negative 145 Sm- no vb lof good fm no regular ctx 02/20/20 26w 2d 246 lb 6 oz (+8 lb 6 oz) 120/78 Negative Negative 150 GP - no LOF, VB, DFM, CTX. Vulvar irritation with thick discharge noted. Terazol 7 prescribed. 03/08/20 28w 5d 244 lb 8 oz (+6 lb 8 oz) 120/86 Negative Negative 155 28 Cephalic GP - no LOF, VB, DFM, ctx. Denies complaints. 03/23/20 30w 6d 249 lb 4 oz (+11 lb 4 oz) 130/80 Negative Negative 154 30 Cephalic MH-NO VB, LOF. Good FM. 04/02/20 32w 2d 251 lb (+13 lb) 110/70 Negative Negative 150 32 Cephalic SM- no vb lof good fm no regular ctx 04/16/20 34w 2d 251 lb 4 oz (+13 lb 4 oz) 130/84 Negative Negative 150 34 Cephalic GP - no LOF, VB, DFM, ctx. Having hip pain - discussed stretches and heating pad. Discussed COVID testing. 04/28/20 36w 0d 252 lb (+14 lb) 118/88 Trace Negative 150 36 Cephalic 0 50 -3 GP - no LOF, VB, DFM, reg ctx. Discussed routes of delivery. GBS today. Trace protein in urine - PreE labs ordered. 05/07/20 37w 2d 254 lb 4 oz (+16 lb 4 oz) 112/86 Negative Negative 150 140 37 Cephalic 0 50 -2 GP - no LOF, VB, DFM, ctx. Discussed positive GBS. Baby tachy in office. NST done. GP - no LOF, VB, DFM, ctx. Discussed positive GBS. Baby tachy in office. NST done and was reactive. 05/14/20 38w 2d 256 lb (+18 lb) 132/84 Negative Negative 140 37 Cephalic 0.5 SM- no vb lof good fm no regular ctx 05/21/20 39w 2d 259 lb 8 oz (+21 lb 8 oz) 110/84 Negative Negative 130 39 Cephalic 0.5 50 -2 GP - no LOF, VB, DFM, ctx. Scheduled for IOL 05/25 for AMA. ACOG First Trimester First Trimester: Desire for , Alcohol, Tobacco Cessation, Illicit/Recreational Drug/Substance Use, Intimate Partner Violence, Barriers to care, Unstable Housing, Communication Barriers, Environmental/Work Hazards, Anticipated Course of Care, Toxoplasmosis Precations, Use of Any medications, Sexual activity, Exercise, Dental Care, Sauna/Hot tub use, Seat Belt use, Childbirth classes/Hospital facilities, , Travel, Indications for US and Screening for Aneuploidy Second Trimester Second Trimester: Signs and Symptoms of Labor, Selecting a care provider, Reproductive Life Planning, Care Planning, Depression/Anxiety and Intimate Partner Violence; discussed Tobacco Cessation Diagnostics Diagnostics Diagnostics Hgb 10.1 g/dL (12.0-15.0) L 04/28/20 Hct 31.5 % (37-47) L 04/28/20 Details: HIV: Urine Culture: Sequential Screen: NIPT Screen: ROS Const Reports system reviewed and no additional complaints, except as documented Card Reports system reviewed and no additional complaints, except as documented Resp Reports system reviewed and no additional complaints, except as documented GI Reports system reviewed and no additional complaints, except as documented, Reports nausea Reports system reviewed and no additional complaints, except as documented Musc Reports system reviewed and no additional complaints, except as documented all other systems reviewed and negative Exam Const General: cooperative, healthy appearing, comfortable [facility] Head: normal to inspection Nose: external nose normal Face and sinus: normal facial exam Neck Neck: normal visual inspection, full ROM, no lymphadenopathy Thyroid: thyroid normal Chest Chest palpation & inspection: normal inspection of the chest Resp Effort & Inspection: normal respiratory effort GI Inspection: normal to inspection Palpation: soft, other (gravid uterus) Other: vertex and appropriate size for gestational age Other: Cervical Exam: Extrem General: pedal edema Results POC Urinalysis 2 Dip (Clinic) Office Urine Glucose Negative Last Edit by Nikole Pyle on 05/21/20 10:09 Office Urine Protein Negative Last Edit by Nikole Pyle on 05/21/20 10:09 Assessment & Plan Problems 1. Positive GBS test B95.1 pcn in labor 2. 35 weeks gestation of Z3A.35 electronic covid test ordered 04/21/2020sc (scheduled for 05/21/2020 at 0940) 3. Obesity affecting O99.210 nl glucola at NOB, encourage healthy weight gain. normal 1 hr GTT 4. AMA (advanced maternal age) multigravida 35+ O09.529 PRR JV 05/26/2020 boy PC: Demetrisjigna Spouse: Jaiden 5. History of oligohydramnios in prior , currently O09.299 nl 36 weeks ultrasound, repeat gustavo 05/21 6. Rh negative state in antepartum period O09.899; Z67.91 Rhogam will be given at 28 weeks and prn. 7. 39 weeks gestation of Z3A.39 decline carrier screening. genetic low risk. ntd screening AFP neg. Anatomy nl admit IAL gbs pos- PCN in labor srom pitocin PRN Orders Orders: POC Urinalysis 2 Dip (Clinic) Today Coding Level of Care Code OB Routine Diagnoses Positive GBS test B95.1 35 weeks gestation of Z3A.35 Obesity affecting O99.210 AMA (advanced maternal age) multigravida 35+ O09.529 History of oligohydramnios in prior , currently O09.299 Rh negative state in antepartum period O09.899; Z67.91 39 weeks gestation of Z3A.39 ??Weeks of gestation: 39 weeks
[2020-05-24] MEDS: Lactated Ringers 500 ML 999 ML IV (11:28)
[2020-05-24] MEDS: fentaNYL-bupivacaine (epidural) 100 ML BAG EPIDURAL ×2 (12:44→18:24)
[2020-05-24] MEDS: Oxytocin 30 units/NS 500 ml 30 UNITS/500 ML IV.SOLN IV (13:20)
[2020-05-24] MEDS: Amnioinfusion- 0.9% NS 1,000 ML IV.SOLN. INTRA-UTER (17:16)
[2020-05-24] MEDS: Lactated Ringers 1,000 ML 200 ML IV (17:34)
[2020-05-24] MEDS: Oxytocin 30 units/NS 500 ml 30 UNITS/500 ML IV.SOLN 334 UNITS IV (20:02)
--- NOTE | 2020-05-24 20:11 | OP.PCM_ITS ---
Problem List (1) SROM (spontaneous rupture of membranes) Status: Acute (2) 35 weeks gestation of Status: Acute Comment: electronic covid test ordered 04/21/2020sc (scheduled for 05/21/2020 at 0940) (3) AMA (advanced maternal age) multigravida 35+ Status: Acute Qualifiers: Comment: PRR JV 05/26/2020 boy PC: Rachel Spouse: Jaiden (4) History of oligohydramnios in prior , currently Status: Acute Comment: nl 36 weeks ultrasound, repeat gustavo 05/21 (5) Lab test negative for COVID-19 virus Status: Acute (6) Obesity affecting Status: Acute Qualifiers: Comment: nl glucola at NOB, encourage healthy weight gain. normal 1 hr GTT (7) Positive GBS test Status: Acute Comment: pcn in labor (8) Status: Acute Qualifiers: Comment: decline carrier screening. genetic low risk. ntd screening AFP neg. Anatomy nl (9) Rh negative state in antepartum period Status: Acute Comment: Rhogam will be given at 28 weeks and prn. Vaginal Delivery Maternal Presentation: Active Labor ial 39w5d Amniotic Membrane Rupture Type: Spontaneous at home Final JV: 05/27/20 Gestational age: 39 Weeks and 5 Days Date of Procedure: 05/24/20 Pre-Operative Diagnosis: ial Post-Operative Diagnosis: same Surgery/ Procedure Performed: Spontaneous Vaginal Delivery Type of Anesthesia: Epidural Description of Procedure: Patient began pushing and delivered the head in the [PETRA] presentation. The head was delivered atraumatically [and a loose nuchal cord ?1 was identified and easily reduced over the infant's head]. The anterior and posterior shoulders delivered without complication followed by the rest of the infant and the infant was placed on the maternal abdomen. Delayed cord clamping was employed for approximately 60 seconds. Cord was clamped and cut and gentle traction was applied to the cord and the placenta delivered spontaneously immediately following it was noted to be intact with three-vessel cord. The perineum and vagina were inspected and noted to have a second-degree perineal laceration that was repaired in the usual fashion with 3-0 Vicryl Rapide. EBL was 100 cc. Patient and tolerated delivery well. Presentation: PETRA Placental Delivery Description: Spontaneous Cord Entanglement: Around neck x 1, loose Estimated Blood Loss: 200 Infant A gender: Male Episiotomy Description: None Laceration: Perineal Extension/lac, 2nd degree Medications given after delivery: IV Pitocin Complications: None Multi Select Codes - Urinary/Genital Urinary/Genital CPT Codes: 92282 Vaginal Delivery [facility]
[2020-05-24] MEDS: Naproxen 250 MG Tablet 500 MG PO (23:15)
[2020-05-24] MEDS: Senna/Docusate Sodium 1 Tablet PO (23:15)
[2020-05-25 00:20] VITALS: BP 112/78; PULSE 109; RESP 17; TEMP 36.7
[2020-05-25 03:50] VITALS: BP 100/38; PULSE 84; RESP 17; TEMP 36.3
--- NOTE | 2020-05-25 07:49 | PN.OBGYN_ITS ---
Patient Problems: Active and Suspected Problems (Last Reviewed 05/21/20 @ 10:01 by Nikole Pyle) SROM (spontaneous rupture of membranes) (Acute) Lab test negative for COVID-19 virus (Acute) Positive GBS test (Acute) pcn in labor 35 weeks gestation of (Acute) electronic covid test ordered 04/21/2020sc (scheduled for 05/21/2020 at 0940) Obesity affecting (Acute) nl glucola at NOB, encourage healthy weight gain. normal 1 hr GTT AMA (advanced maternal age) multigravida 35+ (Acute) PRR JV 05/26/2020 boy PC: Rachel Spouse: Jaiden History of oligohydramnios in prior , currently (Acute) nl 36 weeks ultrasound, repeat gustavo 05/21 Rh negative state in antepartum period (Acute) Rhogam will be given at 28 weeks and prn. (Acute) decline carrier screening. genetic low risk. ntd screening AFP neg. Anatomy nl Subjective: Patient doing well without complaints. Tolerating PO. Ambulating and voiding without difficulty. feeding well. Denies chest pain, shortness of breath, calf pain/swelling, fevers, chills, lightheadedness. - Physical Exam Vitals/I&O's: Vital Signs Temp Pulse Resp BP Pulse Ox 97.4 F L 84 17 100/38 L 100 05/25/20 03:50 05/25/20 03:50 05/25/20 03:50 05/25/20 03:50 05/24/20 22:30 Oxygen Delivery Method Room Air Weight: 259 lb Body Mass Index (BMI) 39.4 Intake and Output for Last 24 Hours 05/23/20 05/24/20 05/25/20 23:59 23:59 23:59 Intake Total 2718.94 / 2718.94 Output Total 2620 / 2620 550 / 550 Balance 98.94 / 98.94 -550 / -550 General: Alert, Oriented x3 Abdomen: Soft, Non Tender, - - FF below U Laboratory Results 05/24/20 09:35: Vag Amniotic Fld Detect POSITIVE H 05/24/20 10:35: WBC 8.8, RBC 4.13 L, Hgb 9.3 L, Hct 30.1 L, MCV 72.9 L, MCH 22.5 L, MCHC 30.9 L, RDW Std Deviation 41.7, RDW Coeff of Linsey 16.4 H, Plt Count 282, MPV 11.1, Immature Gran % (Auto) 0.600, Neut % (Auto) 76.1 H, Lymph % (Auto) 16.8 L, [facility] % (Auto) 4.8, Eos % (Auto) 1.4, Baso % (Auto) 0.3, Absolute Neuts (auto) 6.7, Absolute Lymphs (auto) 1.48, Nucleated RBC % 0 05/24/20 10:35: Blood Type O NEGATIVE, Antibody Screen NEGATIVE 05/24/20 23:05: Screen NEGATIVE, Baby's Blood Type O POSITIVE, Baby's JAY JAY NEGATIVE Current Medications Acetaminophen (Acetaminophen 500 Mg Tablet) 1,000 mg PO Q8H PRN PRN PRN Reason: Pain Score 1-3 Bisacodyl (Bisacodyl 10 Mg Suppository) 10 mg RECTAL UD PRN PRN Reason: If no BM Dibucaine (Dibucaine 30 Gm Tube) 1 applic TOPICAL TID PRN PRN; Protocol PRN Reason: Discomfort Hydrocortisone (Hydrocortisone 2.5% Crm) 1 applic TOPICAL TID PRN PRN; Protocol PRN Reason: Discomfort Methylergonovine Maleate (Methylergonovine 0.2 Mg/Ml Ampul) 0.2 mg IM X1 PRN PRN Reason: Excess bleeding/uterine atony Naproxen (Naproxen 250 Mg Tablet) 500 mg PO Q8H PRN PRN PRN Reason: Pain Score 1-3 Last Admin: 05/24/20 23:15 Dose: 500 mg Documented by: Ondansetron HCl (Ondansetron 4 Mg/2 Ml Vial) 4 mg IV Q4H PRN PRN PRN Reason: Nausea Oxycodone HCl (Oxycodone 5 Mg Tablet) 5 - 10 mg PO Q4H PRN PRN PRN Reason: Pain Score 4-10 Multivit/Folic Acid/Iron ( Vits Tablet) 1 tablet PO DAILY@1200 HEATHER Senna/Docusate Sodium (Senna/Docusate Sodium 1 Tablet) 1 - 2 tablet PO DAILY PRN PRN PRN Reason: Constipation Last Admin: 05/24/20 23:15 Dose: 2 tablet Documented by: Simethicone (Simethicone 80 Mg Tablet) 80 mg PO PCHS PRN PRN Reason: Indigestion/Stomach pain Sodium Chloride (0.9% Saline Lock 10 Ml Syringe) 5 - 15 ml IV UD PRN PRN Reason: SALINE FLUSH Medical Necessity - Tobacco Use Smoking Status: Former smoker Assessment/Plan All Active Problems (Last Reviewed 05/21/20 @ 10:01 by Nikole Pyle) SROM (spontaneous rupture of membranes) (Acute) Lab test negative for COVID-19 virus (Acute) Positive GBS test (Acute) 35 weeks gestation of (Acute) Obesity affecting (Acute) AMA (advanced maternal age) multigravida 35+ (Acute) History of oligohydramnios in prior , currently (Acute) Rh negative state in antepartum period (Acute) (Acute) Contraception management (Resolved) GBS (group B streptococcus) UTI complicating (Resolved) Low lying placenta nos or without hemorrhage, second trimester (Resolved) Oligohydramnios in third trimester (Resolved) Subchorionic hemorrhage in first trimester (Resolved) Supervision of normal first (Resolved) Family history of blood clots (Ruled-out) s/p PPD # 1 1. routine post delivery care 2. breast feeding- support given 3. rh negative 4. rubella immune 5. Plans home today
--- NOTE | 2020-05-25 07:51 | DCINST_ITS ---
Additional Instructions: If you experience any of the following, contact your healthcare provider. * Bleeding that soaks a pad every hour for 2 hours * Fever 100.4 or higher * Unrelieved incision or abdominal pain * Swelling, redness, discharge or bleeding from your incision or episiotomy site * Your incision begins to separate * Problems urinating (including inability to urinate or burning while urinating). * Visual changes * Severe headache * Flu-like symptoms * Pain or redness in one of both of your breasts * Pain, warmth, tenderness or swelling in your legs, especially the calf area * Frequent nausea and vomiting * Symptoms of depression or anxiety If you experience any of the following, call 911 or go to the nearest Emergency Room. * Chest pain * Problems breathing * Seizure activity * Partial or complete paralysis of a body part, slurred speech, weakness or drooping of the face, or a sudden inability to walk or hold your balance Allergies/Adverse Reactions: Allergies No Known Allergies Allergy (Verified 05/24/20 09:37) Medications to take at Discharge vitamin#30 30 mg iron-10 mg iron-folic acid 1 mg-omg3 capsule 1 cap PO DAILY cap 03/15/18 Primary Care Physician: Julio Ro MD [Primary Care Provider] - Test Results: Test results from this visit will be discussed in further detail at your follow- up appointment, if applicable.
--- NOTE | 2020-05-25 07:51 | PCM.DCVAG ---
Additional Instructions: If you experience any of the following, contact your healthcare provider. Bleeding that soaks a pad every hour for 2 hours Fever 100.4 or higher Unrelieved incision or abdominal pain Swelling, redness, discharge or bleeding from your incision or episiotomy site Your incision begins to separate Problems urinating (including inability to urinate or burning while urinating). Visual changes Severe headache Flu-like symptoms Pain or redness in one of both of your breasts Pain, warmth, tenderness or swelling in your legs, especially the calf area Frequent nausea and vomiting Symptoms of depression or anxiety If you experience any of the following, call 911 or go to the nearest Emergency Room. Chest pain Problems breathing Seizure activity Partial or complete paralysis of a body part, slurred speech, weakness or drooping of the face, or a sudden inability to walk or hold your balance Allergies/Adverse Reactions: Allergies No Known Allergies Allergy (Verified 05/24/20 09:37) Medications to take at Discharge vitamin#30 30 mg iron-10 mg iron-folic acid 1 mg-omg3 capsule 1 cap PO DAILY cap 03/15/18 Primary Care Physician: Julio Ro MD [Primary Care Provider] - Test Results: Test results from this visit will be discussed in further detail at your follow-up appointment, if applicable.
[2020-05-25 08:30] VITALS: BP 110/73; PULSE 81; RESP 14; TEMP 36.2
[2020-05-25 12:30] VITALS: BP 125/83; PULSE 96; RESP 16; TEMP 36.1
[2020-05-25] MEDS: Prenatal Vits Tablet 1 TABLET PO (12:35)
[2020-05-25 16:45] VITALS: BP 106/73; PULSE 111; RESP 16; TEMP 36.7
[2020-05-25] MEDS: Naproxen 250 MG Tablet 500 MG PO (17:13)
[2020-05-25 20:32] VITALS: BP 110/77; PULSE 98; RESP 16; TEMP 36.2
== END 2020-05-25 21:15 | disposition home or self-care (01) | DRG 807 ==
PROVIDERS: Admitting Provider Obstetrics & Gynecology; PCP Family Medicine; Referring Provider Obstetrics & Gynecology; Visit Provider Obstetrics & Gynecology
DX: O69.81X0 Labor and delivery complicated by cord around neck, without compression, not applicable or unspecified (principal); Z37.0 Single live birth; O99.214 Obesity complicating childbirth; O99.824 Streptococcus B carrier state complicating childbirth; Z3A.39 39 weeks gestation of pregnancy; Z87.891 Personal history of nicotine dependence; O26.893 Other specified pregnancy related conditions, third trimester; Z67.91 Unspecified blood type, Rh negative; O70.1 Second degree perineal laceration during delivery
CPT/HCPCS: 59025; 59050; 84112; 85025; 85461; 86850; 86900; 86901; 90384; 99218; J7030; J7120; G0378; J2790

== ENCOUNTER → 2020-07-08 11:30 | Outpatient (CLI) | payer OTHER, SELFPAY ==
[2020-07-08 11:25] VITALS: BMI 36.8
[2020-07-12 21:45] LABS: HPV APTIMA, High Risk Negative (Negative)
== END ==
PROVIDERS: PCP Family Medicine; Referring Provider Obstetrics & Gynecology; Visit Provider Obstetrics & Gynecology
DX: Z12.4 Encounter for screening for malignant neoplasm of cervix (principal)
CPT/HCPCS: 87624; 88175; G0145

== ENCOUNTER → 2021-02-07 15:10 | Outpatient (CLI) | payer OTHER, SELFPAY | PROVIDERS: Visit Provider Physician Assistant Surgical | DX: Z11.52 Encounter for screening for COVID-19 (principal) | CPT/HCPCS: 87635; U0005; U0003 ==

== ENCOUNTER 2021-08-29 16:14 | Outpatient (CLI) | payer OTHER, SELFPAY ==
[2021-08-29 17:51] LABS: Hematocrit 42.9 % (37-47); Hemoglobin 14.2 g/dL (12.0-15.0); Mean Corp Hgb Conc 33.1 g/dL (32-36); Mean Corpuscular Hgb 27.8 pg (27.0-32.0); Mean Platelet Vol. 10.3 fl (6.2-12.0); Platelet Count 296 K/mm3 (150-450); RBC Distribution Width CV 14.7 % (11.6-14.6); RBC Distribution Width SD 45.1 fl (35.1-43.9); Red Blood Count 5.11 M/mm3 (4.2-5.4); White Blood Count 9.5 K/mm3 (4.4-11.0)
[2021-08-29 18:18] LABS: Anion Gap 6 (5-15); BUN 11 mg/dL (7-18); BUN/Creat Ratio 13.8 RATIO (10-20); Calcium,Total 8.7 mg/dL (8.5-10.1); Chloride 107 mmol/L (98-107); EST Glomerular Filtration Rate 86 mL/min (>60); Est Glom Filt Rate - Afr Amer 104 mL/min (>60); Glucose 93 mg/dL (74-106); Magnesium 2.1 mg/dL (1.6-2.6); Potassium 4.3 mmol/L (3.5-5.1); Sodium Level 140 mmol/L (136-145); Thyroid Stim Hormone (TSH) 1.37 uIU/mL (0.358-3.74)
== END 2021-08-29 23:59 | disposition home or self-care (01) ==
LOC: MFPLAB 16:16
PROVIDERS: Family Medicine; Visit Provider Family Medicine
DX: R00.2 Palpitations (principal)
CPT/HCPCS: 36415; 80048; 83735; 84443; 85027

== ENCOUNTER → 2021-10-19 | Outpatient (CLI) | payer OTHER, SELFPAY ==
--- NOTE | 2021-10-19 14:07 | ECHOD_ITS ---
Reason For Study: PALPITATIONS Procedure This was a 2D Doppler, Color Flow transthoracic echocardiogram. Exam performed in department. Left Ventricle Normal LV size. Left ventricular systolic function is normal. The estimated ejection fraction is 55 %. Normal diastology for age. No regional wall motion abnormalities noted. Right Ventricle Normal RV size. Normal systolic function. Atria Normal left atrium. Normal right atrium. Mitral Valve Normal mitral valve. Tricuspid Valve Normal tricuspid valve. Mild tricuspid valve insufficiency. Pulmonary artery systolic pressure is 26 mmHg. Aortic Valve Normal aortic valve. Trisinus/trileaflet aortic valve. Pulmonic Valve Normal pulmonic valve. Great Vessels Normal aortic root. The pulmonary artery is normal size. Normal inferior vena cava. Pericardium/Pleural No pericardial effusion. MMode/2D Measurements & Calculations LVIDd: 4.4 cm IVSd: 0.88 cm Ao root diam: 3.2 cm LVIDs: 3.0 cm LVPWd: 0.86 cm RVDd: 3.3 cm FS: 31.9 % LAV(MOD-bp): 38.8 ml LVAd ap4: 31.9 cm2 SV(MOD-sp4): 65.0 ml LAV(MOD-bp) Indexed: 18.1 ml/m2 LVLd ap4: 8.1 cm LAV(MOD-sp2): 34.7 ml EDV(MOD-sp4): 105.1 ml LAV(MOD-sp4): 38.8 ml EDV(sp4-el): 106.9 ml LVAs ap4: 18.1 cm2 LVLs ap4: 7.0 cm ESV(MOD-sp4): 40.1 ml ESV(sp4-el): 39.4 ml EF(MOD-sp4): 61.8 % EF(sp4-el): 63.1 % SV(sp4-el): 67.5 ml LA A4 area: 16.1 cm2 LA dimension(2D): 3.3 cm RA A4 area: 13.6 cm2 Time Measurements MV dec time: 0.17 sec Doppler Measurements & Calculations MV E max bimal: 94.4 cm/sec Lat Peak E' Bimal: 14.2 cm/sec Med Peak E' Bimal: 13.1 cm/sec MV A max bimal: 69.0 cm/sec E/E' lat: 6.6 E/E' med: 7.2 MV E/A: 1.4 Ao V2 max: 143.4 cm/sec LV V1 max: 99.4 cm/sec PA V2 max: 94.8 cm/sec Ao max P.2 mmHg LV V1 max P.0 mmHg TR max bimal: 236.4 cm/sec TR max P.4 mmHg ECHO/Echo Complete Interpretation Summary Normal LV size. Left ventricular systolic function is normal. The estimated ejection fraction is 55 %. Pulmonary artery systolic pressure is 26 mmHg. Structurally normal valves. Ordering Physician: Julio Hoopre Referring Physician: JULIO HOOPER Performed By: Cassandra Barfield RDCS
== END | disposition home or self-care (01) ==
PROVIDERS: PCP Family Medicine; Visit Provider Family Medicine
DX: R00.2 Palpitations (principal)
CPT/HCPCS: 93306

== ENCOUNTER → 2023-04-02 | Outpatient (CLI) | payer OTHER, SELFPAY ==
--- NOTE | 2023-04-02 12:45 | RAD_ITS ---
STUDY: X-RAY CHEST REASON FOR EXAM: Female, 37 years old. Cough TECHNIQUE: PA and lateral views of the chest. COMPARISON: None. FINDINGS: The lungs are clear and expanded. There is no demonstrated pleural abnormality. Normal size heart. Normal mediastinum and elaine. Normal visualized pulmonary arteries. Normal visualized aortic arch and descending thoracic aorta. Normal visualized thoracic spine. Normal visualized ribs, clavicles, and shoulders. There is no demonstrated abnormality of the visualized soft tissue structures of the upper abdomen. RAD/Chest PA and Lateral IMPRESSION: Normal x-ray examination of the chest. Electronically Signed: Albert Phan MD at 13:30 EDT ,
== END | disposition home or self-care (01) ==
LOC: MTRAD 12:41
PROVIDERS: PCP Family Medicine; Referring Provider Physician Assistant; Visit Provider Physician Assistant
DX: R05.9 Cough, unspecified (principal)
CPT/HCPCS: 71046

== ENCOUNTER → 2023-06-25 | Outpatient (CLI) | payer OTHER, SELFPAY ==
--- OUTSIDE RECORDS SUMMARY | 2023-06-25 14:48 | XMS RPT_ITS | CCD ---
Author Name Unknown Address [address] [place] [address] Organization [facility] Care Team Providers Care Woods Manager Name Role Phone JANINE, KINGA Unavailable Unavailable KEY GATES Unavailable Unavailabl e [facility], Unavailable Unavailable ARIE HENDRIX Unavailable Unavai KEY Shell Unavailable Unavailabl e [facility], Unavailable Unavailable Encounters Encounter Date Encounter Type Care Provider Facility Start: 06-10-2018 End: 06-10-2018 Patient encounter procedure ARIE BROWN [facility] Start: 05-27-2018 End: 05-27-2018 Patient encounter procedure KINGA MEHTA [facility] Payers Date Payer Category Payer Unknown [id number] Unknown [id number] Summary Purpose Family History No Family History Records Found Advance Directives No Advanced Directives Records Found Additional Source Comments INFORMATION SOURCE (unrecogn ized section and content) FOR RECORDS PERTAINING TO PATIENTS WHO ARE OR HAVE BEEN ENROLLED IN A CHEMICAL DEPENDENCY/SUBSTANCEABUSE PROGRAM, SOME INFORMATION MAY BE OMITTED. This clinical summary was aggregated from multiple sources. Caution should be exercised in using it in the provision of clinical care. This summary normalizes information from multiple sources, and as a consequence, information in this document may materially change the coding, format and clinical context of patient data. In addition, data may be omitted in some cases. CLINICAL DECISIONS SHOULD BE BASED ON THE PRIMARY CLINICAL RECORDS. [facility]. provides no warranty or guarantee of the accuracy or completeness of information in this document.
== END | disposition home or self-care (01) ==
LOC: PSN 14:25
PROVIDERS: PCP Family Medicine; Referring Provider Obstetrics & Gynecology; Visit Provider Obstetrics & Gynecology
DX: E66.9 Obesity, unspecified (principal)
CPT/HCPCS: 93005

== ENCOUNTER → 2023-07-12 | Outpatient (CLI) | payer OTHER, SELFPAY ==
[2023-07-12 15:21] LABS: Absolute Lymphocyte Count 2.48 X10^3/uL (0.83-4.51); Absolute Neutrophil Count 3.9 X10^3/uL (2.0-7.7); Basophil# 0.08 X10^3/uL; Basophil% 1.1 % (0-1); Eosinophil# 0.27 X10^3/uL; Eosinophils% 3.8 % (0-5); Hematocrit 38.4 % (37-47); Hemoglobin 12.5 g/dL (12.0-15.0); Lymphocyte # 2.48 X10^3/ul (0.83-4.51); Lymphocyte % 34.5 % (19-41); Mean Corp Hgb Conc 32.6 g/dL (32-36); Mean Corpuscular Hgb 25.6 pg (27.0-32.0); Mean Corpuscular Volume 78.7 fL (81-99); Mean Platelet Vol. 9.7 fl (6.2-12.0); Monocyte# 0.42 X10^3/uL; Monocyte% 5.8 % (0-10); NRBC Flagged by Analyzer 0 % (0-5); Neutrophil # 3.91 X10^3/uL (2.7-7.7); Neutrophil % 54.4 % (47-70); Platelet Count 302 K/mm3 (150-450); RBC Distribution Width CV 16.9 % (11.6-14.6); RBC Distribution Width SD 48.2 fl (35.1-43.9); Red Blood Count 4.88 M/mm3 (4.2-5.4); White Blood Count 7.2 K/mm3 (4.4-11.0)
[2023-07-12 15:40] LABS: Vitamin D,25 Hydroxy 15.2 ng/mL
[2023-07-12 15:47] LABS: ALB/GLOB Ratio 1.1 RATIO (0.9-2.4); AST(SGOT) 11 U/L (15-37); Alanine Aminotransfer ALT/SGPT 26 U/L (13-56); Albumin, Serum 3.7 g/dL (3.2-5.0); Alkaline Phosphatase 75 U/L (45-117); Anion Gap 7 (5-15); BUN 8 mg/dL (7-18); Calcium,Total 8.7 mg/dL (8.5-10.1); Chloride 109 mmol/L (98-107); Cholesterol 148 mg/dL (200); Creatinine, Serum 0.67 mg/dL (0.55-1.02); EST Glomerular Filtration Rate 104 mL/min (>60); Est Glom Filt Rate - Afr Amer 126 mL/min (>60); Globulin 3.4 g/dL (2.2-4.2); Glucose 91 mg/dL (74-106); High Density Lipoprotein 51 mg/dL; Potassium 3.8 mmol/L (3.5-5.1); Protein, Total 7.1 g/dL (6.4-8.2); Sodium Level 143 mmol/L (136-145); Triglycerides 179 mg/dL; Very Low Density Lipoprotein 36 mg/dL (5-40)
== END | disposition home or self-care (01) ==
PROVIDERS: PCP Family Medicine; Referring Provider Obstetrics & Gynecology; Visit Provider Obstetrics & Gynecology
DX: E66.9 Obesity, unspecified (principal)
CPT/HCPCS: 36415; 80053; 80061; 82306; 83036; 84443; 85025

== ENCOUNTER → 2024-05-22 | Outpatient (CLI) | payer OTHER, SELFPAY | END | disposition home or self-care (01) | LOC: LABSPEC 11:28 | PROVIDERS: PCP Family Medicine; Referring Provider Nurse Practitioner Family; Visit Provider Nurse Practitioner Family | DX: N89.8 Other specified noninflammatory disorders of vagina (principal) | CPT/HCPCS: 87070; 87205 ==

== ENCOUNTER → 2024-11-10 | Outpatient (CLI) | payer OTHER, SELFPAY | END | disposition home or self-care (01) | LOC: LABSPEC 13:45 | PROVIDERS: PCP Family Medicine; Referring Provider Physician Assistant; Visit Provider Physician Assistant | DX: N39.0 Urinary tract infection, site not specified (principal) | CPT/HCPCS: 87077; 87086; 87088 ==

== ENCOUNTER → 2025-01-26 | Outpatient (CLI) | payer BC, SELFPAY ==
[2025-01-26 16:48] LABS: Hematocrit 40.1 % (37-47); Hemoglobin 13.2 g/dL (12.0-15.0); Immature Granulocytes Count 0.030 X10^3/uL (0.0-0.0); Mean Corp Hgb Conc 32.9 g/dL (32-36); Mean Corpuscular Volume 80.7 fL (81-99); Mean Platelet Vol. 10.8 fl (6.2-12.0); NRBC Flagged by Analyzer 0 % (0-5); Platelet Count 258 K/mm3 (150-450); RBC Distribution Width CV 16.3 % (11.6-14.6); RBC Distribution Width SD 47.5 fl (35.1-43.9); Red Blood Count 4.97 M/mm3 (4.2-5.4); White Blood Count 9.0 K/mm3 (4.4-11.0)
[2025-01-26 17:40] LABS: AST(SGOT) 19 U/L (<=31); Alanine Aminotransfer ALT/SGPT 18 U/L (<=34); Albumin, Serum 4.3 g/dL (3.5-5.0); Alkaline Phosphatase 76 U/L (35-104); Anion Gap 12 (5-15); BUN 10 mg/dL (4-19); BUN/Creat Ratio 13.1 RATIO (10-20); Calcium,Total 9.3 mg/dL (7.6-11.0); Carbon Dioxide 22.8 mmol/L (21.0-32.0); Chloride 104 mmol/L (98-108); Cholesterol 123 mg/dL (<=200); Globulin 2.9 g/dL (2.2-4.2); Glucose 85 mg/dL (70-99); Low Density Lipoprotein Calc. 50 mg/dL; Potassium 3.4 mmol/L (3.3-5.1); Triglycerides 91 mg/dL; Very Low Density Lipoprotein 18 mg/dL (5-40); Vitamin D,25 Hydroxy 27.6 ng/mL (30-100); cholesterol:hdl ratio screen 2.26
== END | disposition home or self-care (01) ==
LOC: BWCLAB 12:14
PROVIDERS: PCP Family Medicine; Referring Provider Obstetrics & Gynecology; Visit Provider Obstetrics & Gynecology
DX: E66.89 Other obesity not elsewhere classified (principal); Z68.38 Body mass index [BMI] 38.0-38.9, adult
CPT/HCPCS: 36415; 80053; 80061; 82306; 83036; 84443; 85025

== ENCOUNTER → 2025-05-25 | Outpatient (CLI) | payer BC, SELFPAY | END | disposition home or self-care (01) | LOC: BWCLAB 16:25 → LABSPEC 16:25 | PROVIDERS: Visit Provider Nurse Practitioner Women's Health | DX: N89.8 Other specified noninflammatory disorders of vagina (principal) | CPT/HCPCS: 87070; 87205 ==